=== PATIENT | male | born 1945 | race American Indian/Alaskan Native ===

== ENCOUNTER 2016-08-11 17:15 | Emergency (ER) | payer MEDICARE ==
[2016-08-11 17:23] VITALS: BP 123/75
[2016-08-11] MEDS ORDERED: NORCO 7.5/325 PO ONE (18:16)
[2016-08-11] MEDS ORDERED: TORADOL IM ONE (18:16)
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
== END 2016-08-11 20:38 | disposition home or self-care (01) ==
LOC: ED 17:15
DX: K40.90 Unilateral inguinal hernia, without obstruction or gangrene, not specified as recurrent (principal); I10 Essential (primary) hypertension; I50.9 Heart failure, unspecified; J44.9 Chronic obstructive pulmonary disease, unspecified; F17.200 Nicotine dependence, unspecified, uncomplicated
CPT/HCPCS: 96372; 99283; J1885